=== PATIENT | female | born 1970 | race Two or more races ===

== ENCOUNTER 2019-12-08 10:50 | Outpatient (CLI) | payer OTHER ==
[2019-12-08] MEDS ORDERED: OMEP-50 PO (11:09)
[2019-12-08] MEDS ORDERED: BUPR150T8 PO (11:09)
[2019-12-08] MEDS ORDERED: CHOL400T27 PO (11:09)
[2019-12-08] MEDS ORDERED: ASPI-1265 PO (11:09)
[2019-12-08] MEDS ORDERED: IBUP-1984 PO (11:09)
[2019-12-08] MEDS ORDERED: CHLO25TA10 PO (11:09)
[2019-12-08] MEDS ORDERED: CITA20TA28 PO (11:09)
[2019-12-08 11:49] LABS: BASOPHILS # (AUTO) 0.1 X10'3 (0-0.2); BASOPHILS % (AUTO) 0.8 % (0-1); EOSINOPHILS # (AUTO) 0.2 X10'3 (0-0.9); EOSINOPHILS % (AUTO) 2.8 % (0-6); LYMPHOCYTES # (AUTO) 2.2 X10'3 (1.1-4.8); LYMPHOCYTES % (AUTO) 25.6 % (21-51); MEAN CORPUSCULAR HEMOGLOBIN 29.8 PG (27.0-31.0); MEAN CORPUSCULAR HGB CONC 34.1 g/dL (33.0-36.5); MEAN CORPUSCULAR VOLUME 87.5 FL (78-98); MEAN PLATELET VOLUME 8.8 FL (7.4-10.4); MONOCYTES # (AUTO) 0.6 X10'3 (0-0.9); MONOCYTES % (AUTO) 6.8 % (2-12); NEUTROPHILS # (AUTO) 5.5 X10'3 (1.8-7.7); PRE OP HEMATOCRIT 40.3 % (35.0-45.0); PRE OP HEMOGLOBIN 13.7 g/dL (12.0-16.0); PRE OP PLATELET COUNT 339 X10'3 (140-440); RED BLOOD COUNT 4.61 X10'6 (4.20-5.60); RED CELL DISTRIBUTION WIDTH 13.5 % (11.5-14.5)
[2019-12-08 12:08] LABS: ALBUMIN 3.5 G/DL (3.4-5.0); ALBUMIN/GLOBULIN RATIO 0.9 (1.1-1.5); ALKALINE PHOSPHATASE 99 IU/L (46-116); BLOOD UREA NITROGEN 17 MG/DL (7-18); BUN/CREATININE RATIO 23.6 (6.6-38.0); CALCIUM 9.4 MG/DL (8.5-10.1); CHLORIDE 103 MMOL/L (99-107); CREATININE 0.72 MG/DL (0.40-0.90); PRE OP ANION GAP 7 (8-16); PRE OP AST 87 U/L (10-37); PRE OP BILIRUB, TOTAL 0.2 MG/DL (0.0-1.0); PRE OP GLUCOSE 82 MG/DL (70-104); PRE OP POTASSIUM 3.4 MMOL/L (3.4-5.1); PRE OP SODIUM 139 MMOL/L (135-145); TOTAL CARBON DIOXIDE 28.7 MMOL/L (24-32); TOTAL PROTEIN 7.4 G/DL (6.4-8.2); eGFR 86 ML/MIN
[2019-12-08 12:12] LABS: PRE OP ALT 187 U/L (30-65)
== END 2019-12-08 23:59 | disposition home or self-care (01) ==
LOC: PRE-OP 10:50 → EDSTATUS 12-16 11:00
PROVIDERS: ATTEND Orthopaedic Surgery
DX: Z01.818 Encounter for other preprocedural examination (principal); S83.242D Other tear of medial meniscus, current injury, left knee, subsequent encounter; S83.281D Other tear of lateral meniscus, current injury, right knee, subsequent encounter; F32.9 Major depressive disorder, single episode, unspecified; I10 Essential (primary) hypertension; E66.01 Morbid (severe) obesity due to excess calories; M17.0 Bilateral primary osteoarthritis of knee; K21.9 Gastro-esophageal reflux disease without esophagitis; X58.XXXD Exposure to other specified factors, subsequent encounter
CPT/HCPCS: 36415; 80053; 85025; 93005

== ENCOUNTER 2020-01-27 07:20 | Day surgery (SDC) | payer OTHER ==
[~2020-01-27] VITALS: Ht 149.9 cm; Wt 108.1 kg
[2020-01-27] VITALS (7 sets, daily range): BP systolic 129–162; BP diastolic 71–96
[2020-01-27 06:55] LABS: BASOPHILS # (AUTO) 0.1 X10'3 (0-0.2); BASOPHILS % (AUTO) 0.6 % (0-1); EOSINOPHILS # (AUTO) 0.2 X10'3 (0-0.9); EOSINOPHILS % (AUTO) 2.1 % (0-6); LYMPHOCYTES # (AUTO) 2.4 X10'3 (1.1-4.8); LYMPHOCYTES % (AUTO) 25.2 % (21-51); MEAN CORPUSCULAR HEMOGLOBIN 29.6 PG (27.0-31.0); MEAN CORPUSCULAR HGB CONC 33.7 g/dL (33.0-36.5); MEAN CORPUSCULAR VOLUME 87.8 FL (78-98); MEAN PLATELET VOLUME 9.2 FL (7.4-10.4); MONOCYTES # (AUTO) 0.7 X10'3 (0-0.9); MONOCYTES % (AUTO) 7.7 % (2-12); NEUTROPHILS % (AUTO) 64.4 % (42-75); PRE OP HEMATOCRIT 39.8 % (35.0-45.0); PRE OP HEMOGLOBIN 13.4 g/dL (12.0-16.0); PRE OP PLATELET COUNT 277 X10'3 (140-440); RED BLOOD COUNT 4.53 X10'6 (4.20-5.60)
[2020-01-27 07:09] LABS: ALBUMIN 3.4 G/DL (3.4-5.0); ALKALINE PHOSPHATASE 101 IU/L (46-116); BLOOD UREA NITROGEN 15 MG/DL (7-18); BUN/CREATININE RATIO 18.3 (6.6-38.0); CALCIUM 9.4 MG/DL (8.5-10.1); CHLORIDE 105 MMOL/L (99-107); CREATININE 0.82 MG/DL (0.40-0.90); PRE OP ANION GAP 8 (8-16); PRE OP AST 68 U/L (10-37); PRE OP BILIRUB, TOTAL 0.5 MG/DL (0.0-1.0); PRE OP GLUCOSE 114 MG/DL (70-104); PRE OP POTASSIUM 3.4 MMOL/L (3.4-5.1); PRE OP SODIUM 142 MMOL/L (135-145); TOTAL CARBON DIOXIDE 28.9 MMOL/L (24-32); TOTAL PROTEIN 6.9 G/DL (6.4-8.2); eGFR 74 ML/MIN
[2020-01-27 07:14] LABS: PRE OP ALT 172 U/L (30-65)
[~2020-01-27 07:20] MED LIST: ASPI-1265 PO; BUPIVAcaine/PF 2.5 mg/ml (0.25%) 30ml vial ONE; BUPR150T8 PO; CHLO25TA10 PO; CHOL400T27 PO; CITA20TA28 PO; IBUP-1984 PO; LIDOcaine 1% (10mg/ml) 2ml vial ONE; OMEP-50 PO; ROPIVAcaine 0.5% (5mg/ml) 30ml vial ONE; VANCOMYCIN 1,500MG inj. 1,500 MG in normal saline 500ml IV soln 500 ML IV ONE; cefazolin/dext.iso 2gm/100ml 100 ML IV ONE; famotidine 20mg tablet PO ONE; ringers solution, lacted 1,000 ML IV SCH; triamcinolone acetonide 40mg/ml inj ONE
[2020-01-27] MEDS ORDERED: fentaNYL/PF 50MCG/1 ML 2ML syringe ONE (07:21)
[2020-01-27] MEDS ORDERED: midazolam 2 mg/2 ml injection ONE (07:23)
[2020-01-27] MEDS ORDERED: ringers solution, lacted 1,000 ML IV SCH (07:24)
[2020-01-27] MEDS ORDERED: morphine 2 MG/ML inj. syringe IV PRN (07:25)
[2020-01-27] MEDS ORDERED: meperidine/PF 25mg/ml syringe IV PRN (07:25)
[2020-01-27] MEDS ORDERED: ondansetron/PF 4mg/2ml inj IV PRN (07:25)
[2020-01-27] MEDS ORDERED: HYDROmorphone inj. 0.5 MG/0.5 ML DISP.SYRIN IV PRN ×2 (07:25)
[2020-01-27] MEDS ORDERED: proCHLORperazine 10 MG/2 ml inj IV PRN (07:25)
[2020-01-27] MEDS ORDERED: morphine 4 MG/ML inj SYRINge IV PRN (07:25)
[2020-01-27] MEDS ORDERED: sevoflurane 250ml liquid IH ONE (07:50)
[2020-01-27] MEDS ORDERED: LIDOcaine 2% (20mg/ml) 5ml vial ONE (08:01)
[2020-01-27] MEDS ORDERED: propofol inj 20 ML IV ONE (08:01)
[2020-01-27] MEDS ORDERED: dexamethasone sod phosphate 4mg/ml inj. ONE (08:11)
[2020-01-27] MEDS ORDERED: ondansetron/PF 4mg/2ml inj ONE (08:11)
--- NOTE | 2020-01-27 08:49 | NUR ---
Received from OR via [facility], accompanied by Anesthesiologist Dr Hayward and report given by Anesthesiolgist. Pt sleepy, denies pain, V/S WNL, NEUROVASCULAR CHECKS INTACT, 20G left forearm , right knee wrapped with bandages, bilateral dorsal pedis pulses palpable.
--- NOTE | 2020-01-27 10:09 | NUR ---
Pt discharged to vehicle by wheelchair without incident in own clothing and all belongings returned to patient. Pt states pain tolerable at 3/10 does not want more IV pain meds, wants to take PO pain meds she has at home. IV removed. Dressings remain CDI. at vehicle and both verbalized understanding of discharge information.
== END 2020-01-27 10:20 | disposition home or self-care (01) ==
LOC: PAS IN 07:20 → PAS 07:20 → UNDOADMIN 07:20 → PCU 3S 07:20 → EDSTATUS 07:30 → UNDODISIN 10:09 → PAS 10:20
PROVIDERS: ATTEND Orthopaedic Surgery
DX: S83.231A Complex tear of medial meniscus, current injury, right knee, initial encounter (principal); S83.271A Complex tear of lateral meniscus, current injury, right knee, initial encounter; M94.261 Chondromalacia, right knee; M17.0 Bilateral primary osteoarthritis of knee; F32.9 Major depressive disorder, single episode, unspecified; K21.9 Gastro-esophageal reflux disease without esophagitis; I10 Essential (primary) hypertension; G47.33 Obstructive sleep apnea (adult) (pediatric); E66.01 Morbid (severe) obesity due to excess calories; Z68.42 Body mass index [BMI] 45.0-49.9, adult; Z79.899 Other long term (current) drug therapy; X58.XXXA Exposure to other specified factors, initial encounter; Y93.89 Activity, other specified; Y92.89 Other specified places as the place of occurrence of the external cause; Y99.8 Other external cause status; Z11.59 Encounter for screening for other viral diseases
CPT/HCPCS: 29873; 29879; 29880; 36415; 80053; 85025; 87081; 87635; J1100; J1170; J2001; J2250; J2270; J2405; J2704; J3010; J3301; J3370; J3490; J7040; J7120; A4215; A4618; A6250; A6449; A7000; J2795

== ENCOUNTER 2020-05-04 14:13 | Day surgery (SDC) | payer OTHER ==
[2020-04-26 12:40] LABS: BASOPHILS # (AUTO) 0.1 X10'3 (0-0.2); BASOPHILS % (AUTO) 1.1 % (0-1); EOSINOPHILS # (AUTO) 0.2 X10'3 (0-0.9); EOSINOPHILS % (AUTO) 2.9 % (0-6); LYMPHOCYTES # (AUTO) 2.2 X10'3 (1.1-4.8); LYMPHOCYTES % (AUTO) 31.6 % (21-51); MEAN CORPUSCULAR HGB CONC 33.9 g/dL (33.0-36.5); MEAN CORPUSCULAR VOLUME 88.7 FL (78-98); MEAN PLATELET VOLUME 9.3 FL (7.4-10.4); MONOCYTES # (AUTO) 0.5 X10'3 (0-0.9); MONOCYTES % (AUTO) 7.4 % (2-12); PRE OP HEMATOCRIT 40.6 % (35.0-45.0); PRE OP HEMOGLOBIN 13.8 g/dL (12.0-16.0); PRE OP PLATELET COUNT 280 X10'3 (140-440); RED BLOOD COUNT 4.58 X10'6 (4.20-5.60); RED CELL DISTRIBUTION WIDTH 13.9 % (11.5-14.5)
[2020-04-26 12:49] LABS: COLOR,URINE YELLOW (Yellow); GLUCOSE, URINE NEGATIVE (Neg); KETONES,URINE NEGATIVE (Neg); LEUKOCYTE ESTERASE ,URINE NEGATIVE (Neg); OCCULT BLOOD,URINE NEGATIVE (Neg); PH,URINE 5.5 (4.8-8.0); PROTEIN,URINE NEGATIVE (Neg); UROBILINOGEN,URINE 0.2 E.U/dL (0.2-1.0)
[2020-04-26 12:56] LABS: UA COLLECTION TYPE CLN CATCH MIDSTREAM
[2020-04-26 12:57] LABS: CLARITY,URINE SLIGHTLY CLOUDY (Clear)
[2020-04-26 12:58] LABS: BACTERIA,URINE 4+ /HPF (Neg); MUCUS STRANDS NONE SEEN /LPF (Neg); RBC,URINE 0-2 /HPF (0-2); SQUAMOUS EPITHELIAL CELL,UR MODERATE /LPF (FEW)
[2020-04-26 12:59] LABS: NITRITES, URINE POSITIVE (Neg)
[2020-04-26 13:06] LABS: ALBUMIN 3.3 G/DL (3.4-5.0); ALKALINE PHOSPHATASE 78 IU/L (46-116); BLOOD UREA NITROGEN 17 MG/DL (7-18); BUN/CREATININE RATIO 25.8 (6.6-38.0); CALCIUM 9.1 MG/DL (8.5-10.1); CHLORIDE 106 MMOL/L (99-107); CREATININE 0.66 MG/DL (0.40-0.90); PRE OP ANION GAP 4 (8-16); PRE OP AST 77 U/L (10-37); PRE OP BILIRUB, TOTAL 0.3 MG/DL (0.0-1.0); PRE OP GLUCOSE 91 MG/DL (70-104); PRE OP POTASSIUM 3.9 MMOL/L (3.4-5.1); PRE OP SODIUM 139 MMOL/L (135-145); TOTAL CARBON DIOXIDE 28.9 MMOL/L (24-32); TOTAL PROTEIN 6.7 G/DL (6.4-8.2); eGFR > 90 ML/MIN
[2020-04-26 13:14] LABS: PRE OP ALT 150 U/L (30-65)
[2020-05-04] VITALS (12 sets, daily range): BP systolic 121–179; BP diastolic 77–110
[~2020-05-04] VITALS: Ht 149.9 cm; Wt 105.0 kg
[~2020-05-04 14:13] MED LIST changes: -BUPIVAcaine/PF 2.5 mg/ml (0.25%) 30ml vial ONE; -LIDOcaine 1% (10mg/ml) 2ml vial ONE; +MIDAZolam 1mg/ml 10ml vial ONE; -ROPIVAcaine 0.5% (5mg/ml) 30ml vial ONE; -VANCOMYCIN 1,500MG inj. 1,500 MG in normal saline 500ml IV soln 500 ML IV ONE; +ceFAZolin 2gm in dextrose, iso 50 ML IV ONE; -cefazolin/dext.iso 2gm/100ml 100 ML IV ONE; +fentaNYL/PF 50MCG/1 ML 2ML syringe ONE; +hydrALAZINE 20mg/ml inj. IV ONE; -triamcinolone acetonide 40mg/ml inj ONE
[2020-05-04] MEDS ORDERED: ringers solution, lacted 1,000 ML IV SCH (15:11)
[2020-05-04] MEDS ORDERED: triamcinolone acetonide 40mg/ml inj ONE (15:13)
[2020-05-04] MEDS ORDERED: BUPIVAcaine/PF 2.5 mg/ml (0.25%) 30ml vial ONE (15:13)
[2020-05-04] MEDS ORDERED: proCHLORperazine 10 MG/2 ml inj IV PRN (15:15)
[2020-05-04] MEDS ORDERED: meperidine/PF 25mg/ml syringe IV PRN (15:15)
[2020-05-04] MEDS ORDERED: acetaminophen 1,000mg/100ml IV 100 ML IV PRN (15:15)
[2020-05-04] MEDS ORDERED: ondansetron/PF 4mg/2ml inj IV PRN (15:15)
[2020-05-04] MEDS ORDERED: morphine 2 MG/ML inj. syringe IV PRN ×2 (15:15)
[2020-05-04] MEDS ORDERED: morphine 4 MG/ML inj SYRINge IV PRN ×2 (15:15)
[2020-05-04] MEDS ORDERED: fentaNYL/PF 50MCG/1 ML 2ML syringe ONE ×2 (15:29→16:16)
[2020-05-04] MEDS ORDERED: midazolam 2 mg/2 ml injection ONE (15:30)
[2020-05-04] MEDS ORDERED: propofol 10mg/ml 20ml vial IV ONE (15:31)
[2020-05-04] MEDS ORDERED: sevoflurane 250ml liquid IH ONE (15:31)
[2020-05-04] MEDS ORDERED: dexamethasone sod phosphate 4mg/ml inj. ONE (16:09)
[2020-05-04] MEDS ORDERED: propofol inj 20 ML IV ONE (16:09)
[2020-05-04] MEDS ORDERED: ondansetron/PF 4mg/2ml inj ONE (16:09)
[2020-05-04] MEDS ORDERED: LIDOcaine 1%/PF 5ML 10 MG/ML VIAL ONE ×2 (16:09)
[2020-05-04] MEDS ORDERED: morphine 10mg/ml inj. ONE (17:09)
--- NOTE | 2020-05-04 17:14 | NUR ---
Received from OR via [facility], accompanied by Anesthesiologist Mainor and report given by Anesthesiolgist. Bias dressing CDI, +DP, +cap refill. IV 20g Lue. 100ml/hr LR. 10L O2sat 98%. VSS. Addendum: 05/04/20 at 1734 by Massimo Dacosta RN, RN Amended: Links added.
[2020-05-04] MEDS ORDERED: hydrALAZINE 20mg/ml inj. IV PRN (17:15)
[2020-05-04] MEDS ORDERED: labetalol 20mg/4ml (5mg/ml) syringe IV PRN (17:15)
[2020-05-04] MEDS ORDERED: HYDROcodone/acetaminophen 5mg/325mg tablet PO ONE (18:45)
--- NOTE | 2020-05-04 19:04 | NUR ---
I HAVE REVIEWED D/C INSTRUCTIONS WITH PATIENT AND FAMILY AND THEY HAVE VERBALIZED UNDERSTANDING. PATIENT D/C HOME WITH ALL BELONGINGS AND FAMILY GAVE TRANSPORT HOME. PATIENT PIVOTED AND TOOK SMALL STEPS TO VAN AND POSITIONED TO COMFORT. ADVISED SON TO ELEVATE PATIENTS OPERATIVE KNEE ABOVE HEART AND FEED PATIENT PRIOR TO PAIN MED ADMINISTRATION. VSS. IV OUT WITHOUT COMPLICATIONS. DRESSING STILL CDI. Addendum: 05/04/20 at 1933 by Massimo Dacosta RN, RN Amended: Links added.
== END 2020-05-04 19:04 | disposition home or self-care (01) ==
LOC: PAS 14:13
PROVIDERS: ATTEND Orthopaedic Surgery
DX: S83.232A Complex tear of medial meniscus, current injury, left knee, initial encounter (principal); S83.282A Other tear of lateral meniscus, current injury, left knee, initial encounter; M94.262 Chondromalacia, left knee; G47.33 Obstructive sleep apnea (adult) (pediatric); I10 Essential (primary) hypertension; F32.9 Major depressive disorder, single episode, unspecified; K21.9 Gastro-esophageal reflux disease without esophagitis; M17.0 Bilateral primary osteoarthritis of knee; F41.9 Anxiety disorder, unspecified; E66.01 Morbid (severe) obesity due to excess calories; Z68.42 Body mass index [BMI] 45.0-49.9, adult; Z98.890 Other specified postprocedural states; Z79.899 Other long term (current) drug therapy; Z79.82 Long term (current) use of aspirin; Z20.828 Contact with and (suspected) exposure to other viral communicable diseases; Z88.5 Allergy status to narcotic agent; Z82.49 Family history of ischemic heart disease and other diseases of the circulatory system; X58.XXXA Exposure to other specified factors, initial encounter; Y93.89 Activity, other specified; Y92.89 Other specified places as the place of occurrence of the external cause; Y99.8 Other external cause status
CPT/HCPCS: 29873; 29879; 29880; 36415; 80053; 81001; 82948; 85025; 87077; 87088; 87186; J0360; J1100; J2250; J2270; J2405; J2704; J3010; J3301; J3490; U0003; A4215; A4618; A6250; A6449; A7000; J7120